=== PATIENT | female | born 1985 | race Caucasian/White ===

== ENCOUNTER 2017-04-08 17:41 | Emergency (ER) | payer OTHER ==
[2017-04-08 17:45] VITALS: BMI 36.6
[2017-04-08 17:50] VITALS: RESP 18
[2017-04-08 18:51] LABS: RBC URINE 4 /hpf (0-3); URINE BACTERIA RARE (<OCC); URINE BILIRUBIN NEGATIVE (NEGATIVE); URINE BLOOD 1+ (NEGATIVE); URINE COLOR Yellow (YELLOW); URINE GLUCOSE (UA) NORMAL (Normal); URINE KETONE NEGATIVE (NEGATIVE); URINE LEUKOCYTE ESTERASE NEG Leu/uL (Negative); URINE PROTEIN NEGATIVE (NEGATIVE); URINE UROBILINOGEN NORMAL mg/dL (0.2-1.0); WBC URINE 2 /hpf (0-5)
--- NOTE | 2017-04-08 18:57 | C.PDOC ---
History Of Present Illness A 31 y/o F who's last menstrual period was on March 05 and is sexually active with no contraception, c/o suprapubic cramping pain with associated breast tenderness and nausea for 2 days. Denies vaginal bleeding, discharge, fever, chills, or any other complaints. Time Seen by Provider: 04/08/17 17:57 Chief Complaint (Nursing): Abdominal Pain History Per: Patient History/Exam Limitations: no limitations Onset/Duration Of Symptoms: Days Current Symptoms Are (Timing): Still Present Severity: Mild Location Of Pain/Discomfort: Suprapubic Radiation Of Pain To:: None Quality Of Discomfort: Cramping Associated Symptoms: Nausea, Other (Breast tenderness) Recent travel outside of the [place]: No Additional History Per: Patient Abnormal Vaginal Bleeding: No Past Medical History Reviewed: Historical Data, Nursing Documentation, Vital Signs Vital Signs: Last Vital Signs Temp 98.2 F 04/08/17 21:26 Pulse 75 04/08/17 21:26 Resp 18 04/08/17 21:26 BP 110/68 04/08/17 21:26 Pulse Ox 100 04/08/17 21:47 Family History: States: Unknown Family Hx - Social History Hx Alcohol Use: No Hx Substance Use: No - Immunization History Hx Tetanus Toxoid Vaccination: No Hx Influenza Vaccination: Yes Hx Pneumococcal Vaccination: Yes Review Of Systems Except As Marked, All Systems Reviewed And Found Negative. Constitutional: Negative for: Fever, Chills Cardiovascular: Positive for: Other (Breast tenderness) Gastrointestinal: Positive for: Nausea, Abdominal Pain Genitourinary: Negative for: Vaginal Discharge, Vaginal Bleeding Physical Exam - Physical Exam Appears: Non-toxic, No Acute Distress Skin: Warm, Dry Head: Atraumatic, Normacephalic Cardiovascular: Rhythm Regular Respiratory: Normal Breath Sounds, No Accessory Muscle Use, No Rales, No Rhonchi , No Wheezing Gastrointestinal/Abdominal: Soft, No Tenderness Back: No CVA Tenderness Neurological/Psych: Oriented x3, Normal Speech, Normal Cognition Gait: Steady ED Course And Treatment - Laboratory Results Result Diagrams: 04/08/17 19:00 04/08/17 19:00 Lab Interpretation: Abnormal Interpretation Of Abnormal: HCG 8320.10 O2 Sat by Pulse Oximetry: 100 (RA) Pulse Ox Interpretation: Normal - CT Scan/US US , Transvaginal Other Rad Studies (CT/US): Read By Radiologist, Radiology Report Reviewed CT/US Interpretation: EXAM: US First Trimester, Transabdominal. CLINICAL HISTORY: 31 years old, female; Pain; Other: Pelvic pain - mild; Gestational age or lmp: 03-05-2017; ;. Patient HX: Beta 8320.10; Additional info: with abdominal pain. TECHNIQUE: Real-time transabdominal obstetrical ultrasound of the maternal pelvis and a first trimester. with image documentation. COMPARISON: No relevant prior studies available. FINDINGS: Gestation: Gestational sac. Yolk sac. No pole. Mean sac diameter of 0.88 cm, out of range. Uterus/cervix: Retroverted uterus. No subchorionic hemorrhage. No cervical dilatation or. effacement. Ovaries: RIGHT ovary: Normal. LEFT ovary: Probable 2.0 x 2.0 x 1.9 cm corpus luteal cyst. No. adnexal masses. Free fluid: Trace free fluid within pelvis. IMPRESSION: 1. Intrauterine , of uncertain viability. Recommend followup. 2. Incidental/non-acute findings are described above. EXAM: US , Transvaginal. CLINICAL HISTORY: 31 years old, female; Pain; Other: Pelvic pain - mild; Gestational age or lmp: 03-05-2017; ;. Patient HX: Beta 8320.10; Additional info: with abdominal pain. TECHNIQUE: Real- time transvaginal obstetrical ultrasound of the maternal pelvis and a first trimester . with image documentation. Transvaginal imaging was used for better evaluation of the fetus and. adnexa. COMPARISON: No relevant prior studies available. FINDINGS: Gestation: Gestational sac. Yolk sac. No pole. Mean sac diameter of 0.88 cm, out of range. Uterus/cervix: Retroverted uterus. No subchorionic hemorrhage. No cervical dilatation or. effacement. Ovaries: RIGHT ovary: Normal. LEFT ovary: Probable 2.0 x 2.0 x 1.9 cm corpus luteal cyst. No. adnexal masses. Free fluid: Trace free fluid within pelvis. IMPRESSION: 1. Intrauterine , of uncertain viability. Recommend followup. 2. Incidental/non-acute findings are described above. Progress Note: Patient had mild nausea with some vomiting in ED. Treated with Zofran. Reevaluation Time: 21:50 Reassessment Condition: Improved (Pain free and no longer vomiting) Medical Decision Making Medical Decision Making: Impression: A 31 y/o F c/o suprapubic cramping pain with associated breast tenderness and nausea for 2 days. Sexually active with no contraception. LMP March 05. Plans: * Blood work up * IV fluids * US pelvis * Reassess Disposition Counseled Patient/Family Regarding: Studies Performed, Diagnosis, Need For Followup - Disposition Referrals: [facility] [Outside] Disposition: HOME/ ROUTINE Disposition Time: 21:51 Condition: STABLE Additional Instructions: Follow up with your hydrogen treater as soon as possible. Instructions: (ED) Forms: [employer] ([place]) - Clinical Impression Clinical Impression: Early stage of - Scribe Statement The provider has reviewed the documentation as recorded by the Scribe Alisia mack All medical record entries made by the Scribe were at my direction and personally dictated by me. I have reviewed the chart and agree that the record accurately reflects my personal performance of the history, physical exam, medical decision making, and the department course for this patient. I have also personally directed, reviewed, and agree with the discharge instructions and disposition.
[2017-04-08 19:09] LABS: BASO % 0.4 % (0.0-2.0); EOS # 0.1 K/uL (0.0-0.7); EOS % 1.2 % (0.0-4.0); HEMATOCRIT 36.5 % (34.0-47.0); LYMPH # 3.1 K/uL (1.0-4.3); LYMPH % 25.4 % (20.0-40.0); MEAN CORPUSCULAR HEMOGLOBIN 29.4 pg (27.0-31.0); MEAN CORPUSCULAR HGB CONC 33.8 g/dL (33.0-37.0); MEAN PLATELET VOLUME 8.8 fL (7.2-11.7); MONO # 0.5 K/uL (0.0-0.8); MONO % 4.3 % (0.0-10.0); RED CELL DISTRIBUTION WIDTH 13.3 % (11.5-14.5); WHITE BLOOD COUNT 12.1 K/uL (4.8-10.8)
[2017-04-08 19:15] LABS: CHLORIDE 99 mmol/L (98-107); POTASSIUM 3.6 mmol/L (3.6-5.2); SODIUM 137 mmol/L (132-148)
[2017-04-08 19:17] LABS: BILIRUBIN,TOTAL 0.4 mg/dL (0.2-1.3); CARBON DIOXIDE 23 mmol/L (22-30); GFR AFRICAN-AMERICAN > 60
[2017-04-08 19:18] LABS: ALB/GLOB RATIO 1.2 (1.0-2.1); ALKALINE PHOSPHATASE 61 U/L (38-126); ALT/SGPT 27 U/L (9-52); AST/SGOT 14 U/L (14-36); BLOOD UREA NITROGEN 9 mg/dL (7-17); CALCIUM 7.9 mg/dl (8.6-10.4); GLUCOSE,RANDOM 86 mg/dL (65-105)
--- NOTE | 2017-04-08 21:12 | US ---
EXAM: US First Trimester, Transabdominal CLINICAL HISTORY: 31 years old, female; Pain; Other: Pelvic pain - mild; Gestational age or lmp: 03-05-2017; ; Patient HX: Beta 8320.10; Additional info: with abdominal pain TECHNIQUE: Real-time transabdominal obstetrical ultrasound of the maternal pelvis and a first trimester with image documentation. COMPARISON: No relevant prior studies available. FINDINGS: Gestation: Gestational sac. Yolk sac. No pole. Mean sac diameter of 0.88 cm, out of range. Uterus/cervix: Retroverted uterus. No subchorionic hemorrhage. No cervical dilatation or effacement. Ovaries: RIGHT ovary: Normal. LEFT ovary: Probable 2.0 x 2.0 x 1.9 cm corpus luteal cyst. No adnexal masses. Free fluid: Trace free fluid within pelvis. IMPRESSION: 1. Intrauterine , of uncertain viability. Recommend followup. 2. Incidental/non-acute findings are described above. EXAM: US , Transvaginal CLINICAL HISTORY: 31 years old, female; Pain; Other: Pelvic pain - mild; Gestational age or lmp: 03-05-2017; ; Patient HX: Beta 8320.10; Additional info: with abdominal pain TECHNIQUE: Real-time transvaginal obstetrical ultrasound of the maternal pelvis and a first trimester with image documentation. Transvaginal imaging was used for better evaluation of the fetus and adnexa. COMPARISON: No relevant prior studies available. FINDINGS: Gestation: Gestational sac. Yolk sac. No pole. Mean sac diameter of 0.88 cm, out of range. Uterus/cervix: Retroverted uterus. No subchorionic hemorrhage. No cervical dilatation or effacement. Ovaries: RIGHT ovary: Normal. LEFT ovary: Probable 2.0 x 2.0 x 1.9 cm corpus luteal cyst. No adnexal masses. Free fluid: Trace free fluid within pelvis.
[2017-04-08 21:29] VITALS: BP 110/68; PULSE 75; TEMP 98.2
[2017-04-08 21:47] VITALS: O2SAT 100
== END 2017-04-08 21:56 | disposition home or self-care (01) ==
LOC: C.ER 17:41
DX: O26.891 Other specified pregnancy related conditions, first trimester (principal); Z3A.00 Weeks of gestation of pregnancy not specified
CPT/HCPCS: 76805; 76817; 80053; 81001; 84702; 84703; 85025; 96374; 99285; J2405